=== PATIENT | female | born 1940 | race Two or more races ===

== ENCOUNTER 2016-05-14 12:01 | Emergency (ER) | payer MEDICARE, MEDICAID ==
[~2016-05-14] VITALS: Ht 160 cm; Wt 68.0 kg
[2016-05-14] MEDS ORDERED: Methocarbamol 750mg tab ORAL ONE (13:15)
[2016-05-14 13:17] VITALS: BP 130/67
[2016-05-14] MEDS ORDERED: ROBAXIN-750750 MG PO (14:55)
[2016-05-14] MEDS ORDERED: IBUPROFEN600 MG ORAL (14:55)
--- NOTE | 2016-05-14 14:56 | Diagnostic Imaging Report ---
Indications: hip pain Findings: Two views of the left hip were obtained. No acute fracture is demonstrated. Alignment of the hip is within normal limits. Soft tissues are unremarkable. Vascular calcifications noted within the left femoral artery. Impression: No acute injury.
[2016-05-14 15:10] VITALS: BP 131/68
[2016-05-14 15:21] VITALS: BP 131/68
--- NOTE | 2016-05-14 15:37 | Emergency Room Report ---
History of Present Illness General Chief Complaint: Lower Back Pain or Injury Source: Patient Present Illness HPI The patient is a 76 old female presenting with left hip pain after a slip and fall yesterday. The pain is described as a 10 out of 10 dull ache it is worse with movement of the leg. Pt denies prior Hx of hip injury. Pt denies numbness or tingling of the leg. Pt has not tried any OTC medications for the pain. No other complaints. Pt denies N, V, F, chills, rash, CP, SOB, dizziness, fatigue Allergies: Coded Allergies: No Known Allergies (Unverified , 05/14/16) Patient History Past Medical History: see triage record Pertinent Family History: none Reviewed Nursing Documentation: PMH: Agreed, PSxH: Agreed Nursing Documentation-PMH Past Medical History: No History, Except For Hx Hypertension: Yes Hx Diabetes: Yes Review of Systems All Other Systems: negative except mentioned in HPI Physical Exam Vital Signs Date Time Temp Pulse Resp B/P Pulse Ox O2 Delivery O2 Flow Rate FiO2 05/14/16 11:57 97.2 82 20 130/67 99 Room Air Sp02 EP Interpretation: reviewed, normal General Appearance: no apparent distress, alert, GCS 15, non-toxic Head: normocephalic, atraumatic Eyes: bilateral eye PERRL, bilateral eye normal inspection ENT: hearing grossly normal, normal pharynx, no angioedema, normal voice Neck: full range of motion, supple/symm/no masses Respiratory: chest non-tender, lungs clear, normal breath sounds, speaking full sentences Cardiovascular #1: regular rate, rhythm, no edema Cardiovascular #2: 2+ carotid (R), 2+ carotid (L), 2+ radial (R), 2+ radial (L) , 2+ dorsalis pedis (R), 2+ dorsalis pedis (L) Gastrointestinal: normal bowel sounds, non tender, soft, non-distended, no guarding, no rebound Rectal: deferred Genitourinary: normal inspection, no CVA tenderness Musculoskeletal: normal inspection, back normal, gait/station normal, normal range of motion, tender - TTP over the L posterior and lateral hip Neurologic: alert, oriented x3, responsive, motor strength/tone normal, sensory intact, speech normal Psychiatric: judgement/insight normal, memory normal, mood/affect normal, no suicidal/homicidal ideation Reflexes: 3+ bicep (R), 3+ bicep (L), 3+ tricep (R), 3+ tricep (L), 3+ knee (R) , 3+ knee (L) Skin: normal color, no rash, warm/dry, well hydrated Lymphatic: no adenopathy Medical Decision Making PA Attestation Dr. Arellano is my supervising physician. Patient management was discussed with my supervising physician Diagnostic Impression: Primary Impression: Muscle spasm of back ER Course The patient is a 76 old female presenting with left hip pain after a slip and fall yesterday. Ddx considered include but not limited to sprain/strain, fracture, contusion, dislocation PE: vitals wnl. NAD L hip/leg: No obvious deformity. No internal or external rotation. Full AROM. SILT. No shortening of leg. No ecchymosis. No midline tenderness. TTP over the L posterior and lateral hip. The patient is given Tylenol and Robaxin for pain with good relief. X-ray of the hip is unremarkable. The patient will be discharged home with a prescription for Motrin and Robaxin and will follow up with primary care physician. Other X-Ray Diagnostic Results Other X-Ray Diagnostic Results : X-Ray Ordered: L hip Date: May 14, 2016 EP Interpretation: Yes Findings: no fractures, no dislocation, no soft tissue swelling Number of Views: 2 PA Scribe Text I am acting as scribe for my supervising physician. My supervising physician's interpretation of the L hip xrays are there are no fractures, dislocations or soft tissue swelling. Last Vital Signs Date Time Temp Pulse Resp B/P Pulse Ox O2 Delivery O2 Flow Rate FiO2 05/14/16 15:21 97.2 75 20 131/68 99 Room Air Status: improved Disposition: HOME, SELF-CARE Condition: Improved Scripts Methocarbamol* (ROBAXIN-750*) 750 Mg Tablet 750 MG PO TID, #21 TAB 0 Refills Prov: TERZIAN,DARNELL P.A. 05/14/16 Ibuprofen* (MOTRIN*) 600 Mg Tablet 600 MG ORAL Q8H Y for For Pain, #30 TAB 0 Refills Prov: TERZIAN,DARNELL P.A. 05/14/16 Patient Instructions: Back Pain, Adult, Heat Therapy Additional Instructions: I discussed my findings with the patient. All questions and concerns have been answered. Treatment and medication compliance have been addressed. I advised the patient that they need to follow up with PMD in 3-5 days. Return to ED if pain remains or worsens, numbness or tingling occurs, new rash is noticed, fever is noticed, or if needed for any reason. Patient verbalized understanding of discharge instructions. DARNELL SERNA May 14, 2016 15:37
== END 2016-05-14 15:40 | disposition home or self-care (01) ==
LOC: EDBD 12:01 → EMR 12:49
DX: M62.830 Muscle spasm of back (principal); M25.552 Pain in left hip; W01.0XXA Fall on same level from slipping, tripping and stumbling without subsequent striking against object, initial encounter; Y92.9 Unspecified place or not applicable; I10 Essential (primary) hypertension; E11.9 Type 2 diabetes mellitus without complications
CPT/HCPCS: 73502; 99283